=== PATIENT | male | born 1965 | race Hispanic/Latino ===

== ENCOUNTER 2019-11-24 00:26 | Inpatient (IN) | payer BC ==
[~2019-11-24] VITALS: Ht 177.8 cm; Wt 112.1 kg
[2019-11-24] VITALS (9 sets, daily range): BP systolic 118–144; BP diastolic 65–82
[~2019-11-24 00:26] MED LIST: CIPROFLOXACN500 MG PO; LISINOPRIL10 MG PO
--- NOTE | 2019-11-24 00:26 | NUR ---
PATIENT TO ROOM 15. TRIAGE COMPLETED AT BEDSIDE.
--- NOTE | 2019-11-24 00:50 | NUR ---
PT CAME IN WITH O2 ON AT 4L, KELBY TURNED DOWN TO [address] LAINEZ WANTED OFF TO DO AN ABG.
[2019-11-24 01:40] LABS: HEMATOCRIT 40.9 % (39.0-50.0); HEMOGLOBIN 13.8 g/dl (14.0-18.0); IMMATURE GRANULOCYTES 0.4 % (0.0-5.0); MEAN CELL VOLUME 89.1 fL CALC (80.0-100.0); MEAN CORPUSCULAR HGB 30.1 pG CALC (26.0-32.0); MEAN CORPUSCULAR HGB CONC 33.7 g/dL CAL (32.0-36.0); NEUT# 7.25 thou/uL (1.82-7.42); RED BLOOD COUNT 4.59 mill/uL (4.70-6.10); RED CELL DISTRI WIDTH 12.4 % (11.5-15.5)
--- NOTE | 2019-11-24 01:50 | NUR ---
PT'S SAT HOLDING ON RA 93-94 WAITING ON TEST RESULTS.
[2019-11-24 01:54] LABS: ACT PARTIAL THROMBO TIME 28.9 SECONDS (20.0-32.5); PROTHROMBIN TIME 10.4 SECONDS (9.0-12.5)
[2019-11-24 01:55] LABS: ALKALINE PHOSPHATASE 59 u/l (38-126); BILIRUBIN, TOTAL 0.6 mg/dL (0.0-1.4); BUN 12 mg/dL (9-20); BUN/CREATININE RATIO 18 (12-20 (CALC)); CARBON DIOXIDE 26 mmol/l (22-30); CHLORIDE 99 mmol/l (95-108); CREATININE 0.7 mg/dL (0.7-1.3); GFR > 60 ML/MIN (>=60 (CALC)); GFR FOR AFR.AMER. > 60 ML/MIN (>=60 (CALC)); LIPASE 50 u/l (23-300); POTASSIUM 3.8 mmol/l (3.5-5.1); TOTAL PROTEIN 6.8 g/dL (6.3-8.2)
[2019-11-24 01:57] LABS: C-REACTIVE PROTEIN 7.2 mg/dL (0-0.9)
[2019-11-24 02:00] LABS: ANION GAP 13 (6-22 (CALC)); SGOT/AST 97 u/l (17-59); SODIUM 134 mmol/l (137-146)
[2019-11-24 02:11] LABS: D-DIMER 0.43 mg/L (0.19-0.60)
--- NOTE | 2019-11-24 02:45 | NUR ---
PT TO BE ADMITTED. WILL OVER FLOW TO ICU. IV ROCEPHIN IN NO ADVERSE REACTION. ZITHROMAX INFUSING.
--- NOTE | 2019-11-24 02:54 | NUR ---
NO COVID SWAB NEEDED SINCE ONE PENDING. DR LAINEZ STATED TO CANCEL. REPORT GIVEN TO TJ VALENCIA. PT OVER FLOW TO ICU.
--- NOTE | 2019-11-24 03:01 | NUR ---
Admission Note Report Given to: DOROTHY VALENCIA Transported by: X Wheelchair Stretcher Transported with: X Nurse Transporter X Patent IV O2 Mangle Roll Operator Location: ICU X MS2 PT ACTUALLY TO ICU BED 8 ICU OVERFLOW.
--- NOTE | 2019-11-24 03:10 | NUR ---
PT ARRIVED TO ICU BED 8 VIA WHEELCHAIR ACCOMPANIED BY ER NURSE. PT ORIENTED TO ROOM AND CALL LIGHT, DISCUSSED POC, PT ALERT AND ORIENTED X3, NO EDEMA. DISCUSSED TEDS AND LOVENOX, PT AGREES. PT SATS 94-95% RA. DISCUSSED POC. ADMISSION ASSESSMENT COMPLETED, CALL LIGHT IN REACH,CONTINUE TO MONITOR.
--- NOTE | 2019-11-24 04:19 | NUR ---
PT 02 SATS DROPPING TO 88-89 WHILE PT IS SLEEPING, PT PLACED ON 02 HI JAYLIN NC, SPO2 98%. PT VOICES NO NEEDS OR COMPLAINTS AT THIS TIME. CALL LIGHT IN REACH,CONTINUE TO MONITOR.
--- NOTE | 2019-11-24 05:18 | NUR ---
ASSISTED PT TO BATHROOM, SPECIMEN OBTAINED AND SENT TO LAB. CALL LIGHT IN REACH,CONTINUE TO MONITOR.
[2019-11-24 05:45] LABS: URINE BILIRUBIN - DIPSTICK NEGATIVE (NEGATIVE); URINE BLOOD DIPSTICK NEGATIVE (NEGATIVE); URINE COLOR YELLOW; URINE GLUCOSE - DIPSTICK NEGATIVE (NEGATIVE); URINE KETONE 15 mg/dL (NEGATIVE); URINE LEUK ESTERASE NEGATIVE (NEGATIVE); URINE NITRITE - DIPSTICK NEGATIVE (Negative); URINE PH 5.5 (4.5-8.0); URINE UROBILINOGEN - DIPSTICK 0.2 E.U./dL (0.2)
[2019-11-24 06:06] LABS: URINE PROTEIN - DIPSTICK Trace mg/dL (NEG-TRACE)
--- NOTE | 2019-11-24 08:24 | NUR ---
PT AWAKE, ALERT, ORIENTED X 3, AMBULATORY. LUNGS ARE DIMINISHED BUT CLEAR, USES 2 LPM NC. BM YESTERDAY. PT WITH DRY NON PRODUCTIVE COUGH. PT WAS SWABBED LAST SATURDAY FOR COVID-19 AT THE [facility], BUT IS UNSURE OF HOW TO GET HIS RESULTS.
--- NOTE | 2019-11-24 12:32 | NUR ---
PT SEEN BY DR CASTRO THIS MORNING. PT REMAINS BEFORE, AT REST IN THE BED IN NO ACUTE DISTRESS.
--- NOTE | 2019-11-24 16:28 | NUR ---
PT UP AND AROUND ROOM WITHOUT DIFFICULTY OR UNSTEADINESS. RICK MARKS PROVIDED TOWELS, PT ABLE TO BATHE HIMSELF TODAY. PT DENIES SHORTNESS OF BREATH.
--- NOTE | 2019-11-24 19:00 | NUR ---
RECEIVED REPORT FROM AM NURSE. VITALS STABLE WILL CONTINUE TO MONITOR.
--- NOTE | 2019-11-24 19:55 | NUR ---
PATIENT ASSESSMENT COMPLETED. PATIENT SITTING IN CHAIR. PATIENT APPEARS TO BE IN NO DISTRESS. PATIENT ALERT AND ORIENTED X4. NC 2L, VITALS STABLE. PATIENT CONTINUES WITH COUGH. PATIENT WITH NO COMPLAINTS OF PAIN OR DISCOMFORT. WILL CONTINUE TO MONITOR.
--- NOTE | 2019-11-24 20:12 | NUR ---
Patient is screened for PT intervention and there are no needs at this time
[2019-11-25] VITALS (9 sets, daily range): BP systolic 107–145; BP diastolic 52–76
--- NOTE | 2019-11-25 | NUR ---
PATIENT SLEEPING. PATIENT DOES NOT APPEAR TO BE IN ANY DISTRESS. PATIENT VITALS STABLE. PATIENT HEART RATE DID ELLIOT TO THE 50'S, DID NOT SUSTAIN. PATIENT SLEEPING AT THE MOMENT. WILL CONTINUE TO MONITOR.
--- NOTE | 2019-11-25 04:00 | NUR ---
PATIENT RESTING IN BED. PATIENT USED URINAL THROUGHOUT THE NIGHT. PATIENT VITALS STABLE. PATIENT CONTINUES ON NASAL CANNULA 2L. PATIENT O2 SAT >90%. PATIENT WITH NO COMPLAINTS. WATER PROVIDED. WILL CONTINUE TO MONITOR PATIENT.
--- NOTE | 2019-11-25 06:00 | NUR ---
PATIENT WITH NO COMPLAINTS. VITALS STABLE. RESTING IN BED. WILL CONTINUE TO MONTIOR.
[2019-11-25 06:34] LABS: HEMATOCRIT 42.4 % (39.0-50.0); IMMATURE GRANULOCYTES 0.9 % (0.0-5.0); MEAN CELL VOLUME 90.4 fL CALC (80.0-100.0); MEAN CORPUSCULAR HGB 29.9 pG CALC (26.0-32.0); NEUT# 15.05 thou/uL (1.82-7.42); RED BLOOD COUNT 4.69 mill/uL (4.70-6.10); RED CELL DISTRI WIDTH 12.5 % (11.5-15.5)
--- NOTE | 2019-11-25 06:45 | NUR ---
RECIEVED REPORT FROM TJ RIOS. ASSUMED PT CARE.
[2019-11-25 06:50] LABS: ALBUMIN 3.7 g/dL (3.2-5.0); ALKALINE PHOSPHATASE 52 u/l (38-126); ANION GAP 10 (6-22 (CALC)); BILIRUBIN, TOTAL 0.5 mg/dL (0.0-1.4); BUN 12 mg/dL (9-20); BUN/CREATININE RATIO 24 (12-20 (CALC)); C-REACTIVE PROTEIN 5.5 mg/dL (0-0.9); CARBON DIOXIDE 27 mmol/l (22-30); CHLORIDE 104 mmol/l (95-108); CREATININE 0.5 mg/dL (0.7-1.3); GFR > 60 ML/MIN (>=60 (CALC)); GFR FOR AFR.AMER. > 60 ML/MIN (>=60 (CALC)); POTASSIUM 3.6 mmol/l (3.5-5.1); SGOT/AST 122 u/l (17-59); SODIUM 136 mmol/l (137-146); TOTAL PROTEIN 6.4 g/dL (6.3-8.2)
--- NOTE | 2019-11-25 08:00 | NUR ---
PT RESTING IN BED, A&0X3 ABLE TO MAKE NEEDS KNOWN. RESPIRATIONS EVEN/UNLABORED, SOB WITH EXERTION. SA02@93% ON 2LPM VIA NC. ABDOMEN SOFT/NON-TENDER. LBM 7-7-20. URINAL AT BEDSIDE. CALL LIGHT IN REACH. WILL MONITOR.
--- NOTE | 2019-11-25 12:03 | NUR ---
PT UP TO RECLINER, IS AT BEDSIDE. RESPIRATIONS EVEN/UNLABORED. BREATHING EXERCISES ENCOURAGED. CALL LIGHT IN REACH. WILL MONITOR.
--- NOTE | 2019-11-25 16:02 | NUR ---
PT RESTING IN BED, RESPIRATIONS EVEN/UNLABORED, SA02@97%. CALL LIGHT IN REACH. WILL MONITOR. PT REMAINS AFEBRILE.
--- NOTE | 2019-11-25 19:50 | NUR ---
PT RESTING IN BED, NO SIGNS OF DISTRESS NOTED, RESP EVEN AND UNLABORED. PT ALERT AND ORIENTED X3, DISCUSSED POC AND NEW IV SITE, PT AGREES. UNABLE TO FIND SITE FOR NEW IV, DRESSING TO EMS SITE CHANGED, PT TOLERATED IV PATENT GIVES BLOOD RETURN. IV FLUIDS CONTINUED. ASSESSMENT COMPLETED, CALL LIGHT IN REACH,CONTINUE TO MONITOR.
--- NOTE | 2019-11-25 23:44 | NUR ---
PT RESTING PRONE POSITION, TOLERATING WELL. IV ANTIBIOTICS HUNG. PT VOICES NO NEEDS OR COMPLAINTS AT THIS TIME. CALL LIGHT IN REACH,CONTINUE TO MONITOR.
[2019-11-26] VITALS (8 sets, daily range): BP systolic 111–134; BP diastolic 61–76
--- NOTE | 2019-11-26 04:00 | NUR ---
PT RESTING IN BED WITH EYES CLOSED, NO SIGNS OF DISTRESS NOTED, RESP EVEN AND UNLABORED. CALL LIGHT IN REACH,CONTINUE TO MONITOR.
--- NOTE | 2019-11-26 05:12 | NUR ---
PT RESTING IN BED SUPINE, NO SIGNS OF DISTRESS NOTED, RESP EVEN AND UNLABORED. PT VOICES NO NEEDS OR COMPLAINTS AT THIS TIME, CALL LIGHT IN REACH,CONTINUE TO MONITOR.
--- NOTE | 2019-11-26 06:45 | NUR ---
REPORT RECEIVED FROM FROM ERIK DE LA CRUZ. CARE ASSUMED.
--- NOTE | 2019-11-26 07:40 | NUR ---
PT RESTING IN BED AWAKE. PT IS ALERT AND ORIENTED X3. SHIFT ASSESSMENT COMPLETED AT THIS TIME. IV PATENT X1. PT ASSISTED UP TO BRUSH TEETH AND SET UP FOR AM CARE. THEN SET UP FOR AM MEAL. CALL LIGHT IN REACH. WILL CONTINUE TO MONITOR.
--- NOTE | 2019-11-26 09:41 | NUR ---
CMP OBTAINED AT THIS TIME
--- NOTE | 2019-11-26 10:02 | NUR ---
PT SITTING UP IN CHAIR AT BEDSIDE. RESP ARE EVEN AND UNLABORED. NO DISTRESS NOTED. CALL LIGHT IN REACH. WILL CONTINUE TO MONITOR.
--- NOTE | 2019-11-26 10:29 | NUR ---
DR CASTRO AT BEDSIDE AT THIS TIME
[2019-11-26 10:36] LABS: ALBUMIN 3.7 g/dL (3.2-5.0); ALKALINE PHOSPHATASE 53 u/l (38-126); ANION GAP 10 (6-22 (CALC)); BUN 15 mg/dL (9-20); BUN/CREATININE RATIO 27 (12-20 (CALC)); CARBON DIOXIDE 27 mmol/l (22-30); CHLORIDE 102 mmol/l (95-108); CREATININE 0.6 mg/dL (0.7-1.3); GFR > 60 ML/MIN (>=60 (CALC)); GFR FOR AFR.AMER. > 60 ML/MIN (>=60 (CALC)); POTASSIUM 3.9 mmol/l (3.5-5.1); SGOT/AST 67 u/l (17-59); SODIUM 135 mmol/l (137-146); TOTAL PROTEIN 6.9 g/dL (6.3-8.2)
[2019-11-26 10:56] LABS: BILIRUBIN, TOTAL 0.8 mg/dL (0.0-1.4)
--- NOTE | 2019-11-26 12:05 | NUR ---
REPORT CALLED TO FABIAN SPENCER. PT TO GO TO ROOM 284 ON MED SURG
--- NOTE | 2019-11-26 12:30 | NUR ---
PT TO MED SURG ROOM 284 VIA WHEELCHAIR ACCOMPANIED BY POWDER HAND X2. PT IN STABLE CONDITION. ALL BELONGINGS SENT WITH PATIENT.
--- NOTE | 2019-11-26 12:36 | NUR ---
PT ARRIVED TO ROOM 284 VIA WHEELCHAIR IN STABLE CONDITION WITH OXYGEN AT 2L VIA NC. AMBULATED TO BATHROOM WITH STEADY GAIT AND SHOWERED INDEPENDENTLY WIHT OXYGEN IN PLACE. VSS. DENIES PAIN. RESPIRATIONS EVEN AND UNLABORED. REMAINS ON AIRBORNE/CONTACT PRECAUTIONS FOR POSITIVE COVID RESULTS. ORIENTED TO NEW ROOM AND CALL LIGHT SYSTEM. SAFETY MEASURES IN PLACE.
--- NOTE | 2019-11-26 15:50 | NUR ---
IV FLUIDS RESTARTED AT 125ML/HR PER ORDER; REMDESIVIR ALSO INFUSING. PT SITTING UP IN BEDSIDE RECLINER; ALERT AND ORIENTED TALKING ON CELL PHONE. NO REQUESTS OR CONCERNS. INDEPENDENT IN ROOM WITH OXYGEN ON.
--- NOTE | 2019-11-26 19:12 | NUR ---
REPORT FROM FABIAN SPENCER. PT ALERT AND ORIENTED. RESTING IN BED. NO APPARENT DISTRESS NOTED. PT SOB WITH EXERTION. 02 @ 2L/M VIA NC. IV SITE APPEAR HEALTHY WITH IVF INFUSING. PT DENIES ANY PAIN OR DISCOMFORT. DISCUSSED POC. PT VERBALIZED UNDERSTANDING. NO CURRENT WANTS OR NEEDS. CALL LIGHT WITHIN REACH. WILL CONTINUE TO MONITOR.
--- NOTE | 2019-11-26 21:06 | NUR ---
PT MEDICATED ORDERED. PT DENIES ANY OTHER WANTS OR NEEDS AT THIS TIME. CALL LIGHT WITHIN REACH. WILL CONTINUE TO MONITOR.
--- NOTE | 2019-11-27 00:26 | NUR ---
PT RESTING IN BED LAYING IN PRONE POSITION. NO APPARENT DISTRESS NOTED. PT WAKES EASILY. DENIES ANY PAIN OR SOB. IV ABT INFUSING, TOLERATING WELL. FRESH ICE WATER PROVIDED. NO CURRENT WANTS OR NEEDS. CALL LIGHT WITHIN REACH. WILL CONTINUE TO MONITOR.
[2019-11-27 03:25] VITALS: BP 131/62
--- NOTE | 2019-11-27 04:36 | NUR ---
LABS OBTAINED. PT TOLERATED WELL. DENIES ANY PAIN OR DISCOMFORT. NO CURRENT WANTS OR NEEDS. CALL LIGHT WITHIN REACH. WILL CONTINUE TO MONITOR.
[2019-11-27 05:09] LABS: HEMATOCRIT 38.5 % (39.0-50.0); HEMOGLOBIN 12.7 g/dl (14.0-18.0); IMMATURE GRANULOCYTES 5.5 % (0.0-5.0); MEAN CELL VOLUME 89.7 fL CALC (80.0-100.0); MEAN CORPUSCULAR HGB 29.6 pG CALC (26.0-32.0); NEUT# 12.37 thou/uL (1.82-7.42); RED BLOOD COUNT 4.29 mill/uL (4.70-6.10); RED CELL DISTRI WIDTH 12.4 % (11.5-15.5)
[2019-11-27 05:48] LABS: ALBUMIN 3.2 g/dL (3.2-5.0); ALKALINE PHOSPHATASE 51 u/l (38-126); ANION GAP 9 (6-22 (CALC)); BILIRUBIN, TOTAL 0.6 mg/dL (0.0-1.4); BUN 15 mg/dL (9-20); BUN/CREATININE RATIO 28 (12-20 (CALC)); C-REACTIVE PROTEIN 3.2 mg/dL (0-0.9); CARBON DIOXIDE 26 mmol/l (22-30); CHLORIDE 105 mmol/l (95-108); CREATININE 0.6 mg/dL (0.7-1.3); GFR > 60 ML/MIN (>=60 (CALC)); GFR FOR AFR.AMER. > 60 ML/MIN (>=60 (CALC)); POTASSIUM 3.8 mmol/l (3.5-5.1); SGOT/AST 70 u/l (17-59); SODIUM 135 mmol/l (137-146); TOTAL PROTEIN 5.6 g/dL (6.3-8.2)
--- NOTE | 2019-11-27 07:15 | NUR ---
REPORT RECEIVED FROM DOROTHY JOSEPH. PT SITTING UP IN BEDSIDE CHAIR; ALERT AND ORIENTED. DENIES PAIN. RESPIRATIONS EVEN AND SLIGHTLY LABORED WITH EXERTION; PT STATES HE FEELS SLIGHTLY SOB EVEN WITH OXYGEN IN PLACE AT 1L; SPO2 94-95%. PRODUCTIVE COUGH WITH THICK SPUTUM THAT PT IS CLEARING WHEN HE TALKS. IV FLUIDS INFUSING WITHOUT DIFFICULTY; IV SITE APPEARS HEALTHY. PLAN OF CARE REVIEWED. PT HAS QUESTIONS ABOUT RISK FACTORS WITH COVID AND EXTENT OF ILLNESS; SEEMS SLIGHTLY ANXIOUS AND TALKS ABOUT HIS AND CHILDREN AT HOME; WORRIED HE WILL EXPOSE THEM. SWAB RESULTS STILL PENDING. SAFETY MEASURES IN PLACE. CALL LIGHT WITHIN REACH.
[2019-11-27 08:00] VITALS: BP 123/72
--- NOTE | 2019-11-27 12:04 | NUR ---
SPO2 REMAINS 94-95% ON 1L OF OXYGEN; PT IS CALMER. VOIDING CLEAR YELLOW URINE IN BEDSIDE URINAL. NO REQUESTS OR CONCERNS AT THIS TIME. SITTING UP IN BEDSIDE CHAIR TALKING TO FAMILY ON CELL PHONE.
--- NOTE | 2019-11-27 14:33 | NUR ---
SET UP FOR SHOWER AND LINENS CHANGED.
[2019-11-27 16:00] VITALS: BP 125/62
--- NOTE | 2019-11-27 16:14 | NUR ---
REMDESIVIR INFUSING. PT REMAINS ON 2L O2 VIA NC.
--- NOTE | 2019-11-27 19:14 | NUR ---
REPORT FROM FABIAN SPENCER. PT SITTING UP AT BEDSIDE IN CHAIR. NO APPARENT DISTRESS NOTED. 02 @ 1L/M VIA NC. PT DENIES ANY PAIN OR DISCOMFORT. IV SITE APPEARS HEALTHY. DISCUSSED POC. PT VERBALIZED UNDERSTANDING. CALL LIGHT WITHIN REACH. WILL CONTINUE TO MONITOR.
[2019-11-27 19:35] VITALS: BP 131/66
--- NOTE | 2019-11-27 23:35 | NUR ---
PT RESTING IN BED WITH EYES CLOSED. NO APPARENT DISTRESS NOTED. RESPIRATIONS EVEN AND UNLABORED. CALL LIGHT WITHIN REACH. WILL CONTINUE TO MONITOR.
--- NOTE | 2019-11-28 03:20 | NUR ---
PT RESTING IN BED WITH EYES CLOSED. NO APPARENT DISTRESS NOTED. RESPIRATIONS EVEN AND UNLABORED. CALL LIGHT WITHIN REACH. WILL CONTINUE TO MONITOR.
[2019-11-28 05:00] VITALS: BP 128/76
--- NOTE | 2019-11-28 07:30 | NUR ---
REPORT RECEIVED FROM DOROTHY JOSEPH.
[2019-11-28 08:37] VITALS: BP 119/71
--- NOTE | 2019-11-28 09:30 | NUR ---
PT ALERT AND ORIENTED. DENIES PAIN. RESPIRATIONS EVEN AND UNLABORED ON ROOM AIR. COUGH NOTED; OFFERED ROBITUSSIN, BUT PT REPORTS THAT IT CAUSED HIM TO HAVE A HEADACHE LAST NIGHT AND DOES NOT WANT IT. SPO2 STABLE ON 1L; PT PLACED ON ROOM AIR. PT STATES THAT HE HAS BEEN SHOWERING ON ROOM AIR AND REPLACING OXYGEN AFTER. WILL CONTINUE TO MONITOR. PLAN OF CARE REVIEWED. PT ENCORAGED TO VERBALIZE CONCERNS. STATES UNDERSTANDING. SAFETY MEASURES IN PLACE. CALL LIGHT WITHIN REACH.
--- NOTE | 2019-11-28 10:10 | NUR ---
SPO2 95% AFTER 40 MINUTES ON ROOM AIR. PT DENIES SOB. RESTING IN BED SEMI FOWLERS. NO REQUESTS OR CONCERS AT THIS TIME.
--- NOTE | 2019-11-28 14:00 | NUR ---
SNACK PROVIDED TO PT. SITTING UP IN BEDSIDE CHAIR WITH NO REQUESTS OR CONCERNS.
[2019-11-28 15:05] VITALS: BP 132/70
--- NOTE | 2019-11-28 15:30 | NUR ---
REMDESIVIR INFUSING AT THIS TIME WITHOUT DIFFICULTY; IV SITE APPEARS HEALTHY.
[2019-11-28 19:25] VITALS: BP 130/63
--- NOTE | 2019-11-28 19:40 | NUR ---
REPORT FROM FABIAN SPENCER. PT SITTING UP AT BEDSIDE IN CHAIR. NO APPARENT DISTRESS NOTED, PT REMAINS ON RA. PT DENIES ANY PAIN OR DISCOMFORT. IV SITE APPEARS HEALTHY. DISCUSSED POC. PT VERBALIZED UNDERSTANDING. PT DENIES ANY CURRENT WANTS OR NEEDS. CALL LIGHT WITHIN REACH. WILL CONTINUE TO MONITOR.
--- NOTE | 2019-11-28 21:42 | NUR ---
PT MEDICATED ORDERED. PT DENIES ANY CURRENT WANTS OR NEEDS. CHIEF SUSTAINABILITY OFFICER DISCUSSED IV SITE COMING OF MIDNIGHT AND NEED FOR NEW SITE, PT STATES HE IS VERY HARD STICK AND REFUSED NEW SITE AT THIS TIME. CURRENT SITE APPEARS HEALTHY, AND FLUSHES EASILY. PT EDUCATED AND CONTINUES TO REFUSED. WILL CONTINUE TO MONITOR.
--- NOTE | 2019-11-28 23:48 | NUR ---
PT RESTING IN BED WITH EYES CLOSED. PT WAKES EASILY. PT DENIES ANY PAIN OR SOB. IV SITE FLUSHED AND IV ABT INITIATED. NO CURRENT WANTS OR NEEDS. CALL LIGHT WITHIN REACH. WILL CONTINUE TO MONITOR.
--- NOTE | 2019-11-29 04:42 | NUR ---
LABS OBTAINED PT TOLERATED WELL. PT CONTINUE TO REFUSED NEW IV SITE, CURRENT SITE REMAINS HEALTHY. WILL CONTINUE TO MONITOR. FRESH ICE WATER PROVIDED. CALL LIGHT WITHIN REACH.
[2019-11-29 05:05] LABS: HEMATOCRIT 38.9 % (39.0-50.0); HEMOGLOBIN 12.9 g/dl (14.0-18.0); MEAN CELL VOLUME 89.4 fL CALC (80.0-100.0); MEAN CORPUSCULAR HGB 29.7 pG CALC (26.0-32.0); MEAN CORPUSCULAR HGB CONC 33.2 g/dL CAL (32.0-36.0); RED BLOOD COUNT 4.35 mill/uL (4.70-6.10); RED CELL DISTRI WIDTH 12.3 % (11.5-15.5)
[2019-11-29 05:29] LABS: ALBUMIN 3.5 g/dL (3.2-5.0); ALKALINE PHOSPHATASE 57 u/l (38-126); ANION GAP 9 (6-22 (CALC)); BILIRUBIN, TOTAL 0.5 mg/dL (0.0-1.4); BUN 15 mg/dL (9-20); BUN/CREATININE RATIO 24 (12-20 (CALC)); C-REACTIVE PROTEIN 3.1 mg/dL (0-0.9); CARBON DIOXIDE 25 mmol/l (22-30); CHLORIDE 105 mmol/l (95-108); CREATININE 0.6 mg/dL (0.7-1.3); GFR > 60 ML/MIN (>=60 (CALC)); GFR FOR AFR.AMER. > 60 ML/MIN (>=60 (CALC)); POTASSIUM 4.3 mmol/l (3.5-5.1); SGOT/AST 53 u/l (17-59); SODIUM 135 mmol/l (137-146); TOTAL PROTEIN 5.9 g/dL (6.3-8.2)
[2019-11-29 05:30] VITALS: BP 109/65
[2019-11-29 05:33] LABS: IMMATURE GRANULOCYTES 10.5 % (0.0-5.0); PLATELET COUNT 299 thou/uL (130-400)
[2019-11-29 05:34] LABS: MANUAL DIFFERENTIAL YES; PLATELET ESTIMATE NORMAL
[2019-11-29 05:35] LABS: OTHER CELL TYPE FEW
--- NOTE | 2019-11-29 11:32 | NUR ---
PT IS ALERT AND ORIENTED AND ABLE TO VERBALIZE NEEDS. RESPIRATIONS ARE EVEN AND NON LABORED, PT HAS NON PRIODUCTIVE COUGH NOTED. MEDICATIONS GIVEN AND TOLERATED WELL. DENIES PAIN WHEN ASKED. PT IS AMBULATORY WITH STEADY GAIT AND BALANCE. PT STATES THAT HE FEELS BETTER TODAY AND WISHED TO GO HOME WHEN HIS ANTIVIRAL IS COMPLETED. CALL LIGHT IS WITHIN REACH. WILL CONTINUE TO OBSERVE.
[2019-11-29 14:01] VITALS: BP 124/68
[2019-11-29 15:52] VITALS: BP 105/67
--- NOTE | 2019-11-29 17:57 | NUR ---
PT SITTING UP AT BEDSIDE WITH NO S/S OF DISTRESS. ABOLE TO MAKE NEEDS KNOWN. PRODUCTIVE COUGH NOTED. RESPIRATIONS ARE EVEN AND NON LABORED. MEDICATIONS GIVEN AND TOLERATED WELL. DENIES PAIN OR DISCOMFORT. MEAL AND FLUID INTAKE ADEQUATE. CALL LIGHT WITHIN REACH. WILL CONTINUE TO OBSERVE.
[2019-11-29 19:53] VITALS: BP 135/69
--- NOTE | 2019-11-29 20:41 | NUR ---
PT. SITTING UP IN CHAIR WITH NO DISTRESS NOTED; DENIES NEEDS/PAIN. SCHED LOVENOX GIVEN. FRESH WATER PROVIDED. ASSESSMENT COMPLETED. ENCOURAGED TO CALL FOR ANY NEEDS. CALL LIGHT IS IN REACH.
--- NOTE | 2019-11-29 22:25 | NUR ---
PT. RESTING IN BED WITH EYES CLOSED. NO DISTRESS NOTED.
--- NOTE | 2019-11-30 | NUR ---
RESTING IN BED WITH EYES CLOSED; AWAKENED FOR ANTIBIOTICS TO BE HUNG. DISCUSSED IV SITE BEING OUT OF DATE AND PER PT. HE WOULD LIKE TO LEAVE THIS IV SITE IN IT IS WORKING WELL AND MAY BE DISCHARGED HOME TODAY.
--- NOTE | 2019-11-30 02:00 | NUR ---
PT. RESTING IN BED WITH NO DISTRESS NOTED; DENIES NEEDS/PAIN. ENCOURAGED TO CALL FOR ANY NEEDS. CALL LIGHT IS IN REACH.
[2019-11-30 04:34] VITALS: BP 111/66
--- NOTE | 2019-11-30 04:34 | NUR ---
VSS; NO DISTRESS NOTED; PT. HAS BEEN ON RA. ENCOURAGED TO CALL FOR ANY NEEDS.
--- NOTE | 2019-11-30 07:32 | NUR ---
RECEIVED REPORT ON PT AND PT SITTING UP AT BEDSIDE WITH NO S/SF DISTRESS. ABLE TO VERBALIZE NEEDS. NO RESPIRATORY DISTRESS NOTED. WILL CONTINUE TO OBSERVE
[2019-11-30] MEDS ORDERED: DEXAMETHASON6 MG PO (11:24)
--- NOTE | 2019-11-30 12:14 | NUR ---
PT SITTING UP AT BEDSIDE EATING HIS LUNCH. DENIES PAIN OR DISCOMFORT. MEDICATIONS GIVEN AND TOLERATED WELL. PT WISHES TO DISCHARGE HOME TODAY. MD MADE AWARE. CONTINUES ON ANTIVIRAL MEDICATION. RESPIRATION ARE EVEN AND NON LABORED. CONTINUES WITH NON PRODUCTIVE COUGHT AND HAS TO COUGH SOMETIMES WHILE TALKING. AMBULATORY WITH STEADY GAIT AND BALANCE. PT IS CONTINENT OF B/B AND AMBULATES TO TOILET. IV SITE INTACT AND NO S/S OF INFECTION/INFILTRATION. WILL CONTINUE TO OBSERVE.
--- NOTE | 2019-11-30 17:15 | NUR ---
PT DISCHARGED HOME THIS AFTERNOON. EDUCATION AND TEACHING DONE ON DISCHARGE MEDICATIONS WELL FOLLOWUP WITH PCP AFTER DISCHARGE. PT STATES HE UNDERSTOOD. ALL PERSONAL BELONGING AND PERTINENT PAPERS TAKEN WITH PT. PRESCRIPTION GIVEN TO PT. PT WAS TRASNPORTED TO VEHICLE VIA WHEELCHAIR AND ABLE TO TRANSFER SELF TO VEHICLE.
[2019-12-01] MEDS ORDERED: DEXAMETHASON2 MG PO (07:38)
--- NOTE | 2019-12-08 11:11 | NUR ---
Notified patient of positive Covid results from 11/24/19. Patient states he is still under quarantine, but was tested 7 days ago at a drive-through clinic. Patient states he is feeling much better. Advised patient to return to ED with any issues. Patient verbalized understanding.
== END 2019-11-30 15:40 | disposition home or self-care (01) | DRG 177 ==
LOC: ED 00:26 → ED-I 02:31 → ED 02:43 → ICU 02:44 → ED 03:01 → ICU 05:35 → MS2 11-26 12:36
PROVIDERS: ADMIT Internal Medicine; ATTEND Internal Medicine
DX: U07.1 COVID-19 (principal); J12.89 Other viral pneumonia; J96.01 Acute respiratory failure with hypoxia; I10 Essential (primary) hypertension; Z87.891 Personal history of nicotine dependence
CPT/HCPCS: J1650

== ENCOUNTER 2022-01-16 09:23 | Day surgery (SDC) | payer BC ==
[~2022-01-16] VITALS: Ht 177.8 cm; Wt 113.4 kg
[~2022-01-16 09:23] MED LIST changes: +DEXAMETHASON2 MG PO; +DEXAMETHASON6 MG PO
[2022-01-16 11:49] VITALS: BP 126/76
== END 2022-01-16 11:40 | disposition home or self-care (01) | DRG 951 ==
LOC: ENDO 09:23
PROVIDERS: ATTEND Surgery
PROC: 0DJD8ZZ Inspection of Lower Intestinal Tract, Via Natural or Artificial Opening Endoscopic (ICD-10-PCS; principal; 2022-01-16)
DX: Z12.11 Encounter for screening for malignant neoplasm of colon (principal); K57.30 Diverticulosis of large intestine without perforation or abscess without bleeding; K64.8 Other hemorrhoids; I10 Essential (primary) hypertension